=== PATIENT | female | born 1985 | race Caucasian/White ===

== ENCOUNTER 2017-03-12 13:48 | Emergency (ER) | payer OTHER ==
[2017-03-12 14:07] VITALS: RESP 18
[2017-03-12 14:09] VITALS: BMI 38.4
--- NOTE | 2017-03-12 14:56 | RAD ---
HISTORY: chest pain COMPARISON: No prior. TECHNIQUE: Chest PA and lateral FINDINGS: LUNGS: No active pulmonary disease. PLEURA: No significant pleural effusion identified. No pneumothorax apparent. CARDIOVASCULAR: Normal. OSSEOUS STRUCTURES: No significant abnormalities. VISUALIZED UPPER ABDOMEN: Normal. OTHER FINDINGS: None. IMPRESSION: No active disease.
[2017-03-12 15:09] LABS: BASO # 0.1 K/uL (0.0-0.2); EOS # 0.2 K/uL (0.0-0.7); EOS % 2.8 % (0.0-4.0); LYMPH # 2.3 K/uL (1.0-4.3); LYMPH % 25.9 % (20.0-40.0); MEAN CORPUSCULAR HGB CONC 32.2 g/dL (33.0-37.0); MEAN PLATELET VOLUME 8.4 fL (7.2-11.7); MONO # 0.6 K/uL (0.0-0.8); MONO % 6.3 % (0.0-10.0); RED CELL DISTRIBUTION WIDTH 15.4 % (11.5-14.5)
--- NOTE | 2017-03-12 15:09 | C.PDOC ---
History Of Present Illness 31 year old female presents to the ED with complaints of sharp left sided chest pain for two days that radiates to the back. Patient also notes right sided neck pain that is worsened with movement. Patient reports recent travel on airplane, with extended period of time sitting. Patient denies exacerbation of pain with deep breaths, weakness, numbness, shortness of breath, nausea, vomiting. Denies HTN, Diabetes, tobacco or drug use. Time Seen by Provider: 03/12/17 14:16 Chief Complaint (Nursing): Chest Pain History Per: Patient History/Exam Limitations: no limitations Onset/Duration Of Symptoms: Days (2) Current Symptoms Are (Timing): Still Present Quality: "Pain" Associated Symptoms: denies: Nausea, Dyspnea, Diaphoresis, Syncope Modifying Factors: None Exacerbating Factors: None Alleviating Factors: None Recent travel outside of the [place]: No Past Medical History Reviewed: Historical Data, Nursing Documentation, Vital Signs Vital Signs: Last Vital Signs Temp 97.8 F 03/12/17 13:58 Pulse 73 03/12/17 17:25 Resp 18 03/12/17 17:25 BP 99/56 L 03/12/17 17:25 Pulse Ox 100 03/12/17 18:19 - [facility] Procedures DELIVERY OF PRODUCTS OF CONCEPTION, EXTERNAL APPROACH (07/29/15) REPAIR PERINEUM MUSCLE, OPEN APPROACH (07/29/15) Family History: States: Unknown Family Hx - Social History Hx Alcohol Use: No Hx Substance Use: No - Immunization History Hx Influenza Vaccination: No Review Of Systems Constitutional: Negative for: Fever, Chills Cardiovascular: Positive for: Chest Pain. Negative for: Palpitations Respiratory: Negative for: Cough, Shortness of Breath Gastrointestinal: Negative for: Nausea, Vomiting, Abdominal Pain, Diarrhea Musculoskeletal: Positive for: Neck Pain, Back Pain Neurological: Negative for: Weakness, Numbness Physical Exam - Physical Exam Appears: Well, Non-toxic, No Acute Distress Skin: Warm, Dry, No Rash Head: Atraumatic, Normacephalic, No Tenderness Eye(s): bilateral: Normal Inspection, PERRL, EOMI Oral Mucosa: Moist Neck: Paracervical Tenderness, Supple Chest: Symmetrical, No Deformity Cardiovascular: Rhythm Regular, No Murmur Respiratory: No Rales, No Rhonchi, No Wheezing, Other (clear to auscultation bilaterally ) Gastrointestinal/Abdominal: Soft, No Tenderness, No Distention, No Guarding, No Rebound Back: Muscle Spasm (upper neck and back), Paraspinal Tenderness (upper back paraspinal tenderness ) Extremity: Normal ROM, No Tenderness Pulses: Left Radial: Normal, Right Radial: Normal Neurological/Psych: Oriented x3 Gait: Steady ED Course And Treatment - Laboratory Results Result Diagrams: 03/12/17 15:00 03/12/17 15:00 ECG: Interpreted By Me, Viewed By Me ECG Rhythm: Sinus Rhythm Rate From EC O2 Sat by Pulse Oximetry: 100 (RA) Pulse Ox Interpretation: Normal - Radiology CXR: Viewed By Me, Read By Radiologist CXR Interpretation: Yes: No Acute Disease Progress Note: EKG, CXR, and blood work were ordered. Patient was given Toradol. Medical Decision Making Medical Decision Making: EKG shows NSR at 67bpm with sinus arrhythmia. D-Dimer was elevated. CT angio was ordered to rule out PE. FINDINGS: PULMONARY ARTERIES: The visualized pulmonary trunk, right and left main, segmental and proximal subsegmental branches of the pulmonary arteries are well opacified with no definitive filling defects seen to suggest acute central pulmonary embolus. Pulmonary trunk measures approximately 2.6 the the cm. AORTA: The ascending thoracic aorta measures approximately 2.5 cm and descending thoracic aorta measures approximately 1.9 cm. LUNGS: No focal consolidation however vague ground-glass densities in the posterior lung keller on most pronounced in the lower lobes probably represent some areas of passive/dependent type atelectasis and possibly some air trapping. No evidence of parenchymal mass or nodule. PLEURAL SPACES: Unremarkable. No effusion or pneumothorax. HEART: Heart size is within range of normal. No significant pericardial effusion. LYMPH NODES: . No significant mediastinal hilar adenopathy. Central airways are midline and patent. No endobronchial central endobronchial lesions are identified. BONES, CHEST WALL: No acute compression fractures. Minor multilevel degenerative spondylosis of the thoracic spine. OTHER FINDINGS: Visualized upper abdominal structures are unremarkable. IMPRESSION: No evidence of acute central pulmonary embolus. Mild passive/ dependent type atelectasis and suspected air trapping changes as described. 6:25PM Patient has no cardiac risk factors. She has a normal ekg. Her CTA was negative. She feels better after toradol and reports that she will follow-up with PMD Disposition - Disposition Disposition: HOME/ ROUTINE Disposition Time: 18:19 Condition: GOOD Additional Instructions: Follow-up with PMD within 2 days for further evaluation. Return to ED if condition worsens. Instructions: Costochondritis (ED) Forms: [facility] (Spanish) - Clinical Impression Clinical Impression: Chest pain - Scribe Statement The provider has reviewed the documentation as recorded by the Scribe Joanne Beasley All medical record entries made by the Zoranibe were at my direction and personally dictated by me. I have reviewed the chart and agree that the record accurately reflects my personal performance of the history, physical exam, medical decision making, and the department course for this patient. I have also personally directed, reviewed, and agree with the discharge instructions and disposition.
[2017-03-12 15:13] LABS: MEAN CELL VOLUME 80.5 fL (81.0-99.0)
[2017-03-12 15:26] LABS: ALB/GLOB RATIO 1.1 (1.0-2.1); ALKALINE PHOSPHATASE 80 U/L (38-126); ALT/SGPT 33 U/L (9-52); AST/SGOT 21 U/L (14-36); BILIRUBIN,TOTAL 0.8 mg/dL (0.2-1.3); BLOOD UREA NITROGEN 10 mg/dL (7-17); CALCIUM 8.7 mg/dl (8.6-10.4); CARBON DIOXIDE 27 mmol/L (22-30); CHLORIDE 99 mmol/L (98-107); GFR AFRICAN-AMERICAN > 60; GLUCOSE,RANDOM 82 mg/dL (65-105); POTASSIUM 4.5 mmol/L (3.6-5.2); SODIUM 132 mmol/L (132-148)
[2017-03-12] MEDS ORDERED: Iodixanol 320 mg/ml 150 ml Bottle IV ONE (17:02)
--- NOTE | 2017-03-12 18:18 | CT ---
PROCEDURE: CT Chest with contrast (Pulmonary Angiogram) HISTORY: chest pain, elevated dimer COMPARISON: Correlation made with chest x-ray obtained earlier same day TECHNIQUE: Axial computed tomography images were obtained of the chest in the pulmonary arterial phase of enhancement. Coronal and sagittal reformatted images were created and reviewed. Intravenous contrast dose: 75 cc Visipaque 320 contrast material. Radiation dose: Total exam DLP = 536.14 mGy-cm. This CT exam was performed using one or more of the following dose reduction techniques: Automated exposure control, adjustment of the mA and/or kV according to patient size, and/or use of iterative reconstruction technique. FINDINGS: PULMONARY ARTERIES: The visualized pulmonary trunk, right and left main, segmental and proximal subsegmental branches of the pulmonary arteries are well opacified with no definitive filling defects seen to suggest acute central pulmonary embolus. Pulmonary trunk measures approximately 2.6 the the cm. AORTA: The ascending thoracic aorta measures approximately 2.5 cm and descending thoracic aorta measures approximately 1.9 cm. LUNGS: No focal consolidation however vague ground-glass densities in the posterior lung keller on most pronounced in the lower lobes probably represent some areas of passive/dependent type atelectasis and possibly some air trapping. No evidence of parenchymal mass or nodule. PLEURAL SPACES: Unremarkable. No effusion or pneumothorax. HEART: Heart size is within range of normal. No significant pericardial effusion. LYMPH NODES: . No significant mediastinal hilar adenopathy. Central airways are midline and patent. No endobronchial central endobronchial lesions are identified. BONES, CHEST WALL: No acute compression fractures. Minor multilevel degenerative spondylosis of the thoracic spine. OTHER FINDINGS: Visualized upper abdominal structures are unremarkable. IMPRESSION: No evidence of acute central pulmonary embolus. Mild passive/ dependent type atelectasis and suspected air trapping changes as described.
[2017-03-12 19:31] VITALS: BP 101/69; PULSE 79; TEMP 98.2; O2SAT 96
--- NOTE | 2017-03-13 19:06 | CARD ---
APPROVED REPORT EKG Measurement Heart [id number] <Conclusion> Normal sinus rhythm with sinus arrhythmia Normal ECG
== END 2017-03-12 19:28 | disposition home or self-care (01) ==
LOC: C.ER 13:48
DX: R07.9 Chest pain, unspecified (principal)
CPT/HCPCS: 71020; 71275; 80053; 85025; 85378; 93005; 96374; 99285; J1885; Q9967

== ENCOUNTER 2018-03-03 17:16 | Emergency (ER) | payer OTHER ==
[2018-03-03 17:16] VITALS: BMI 38.4
[2018-03-03 17:50] VITALS: BP 100/70; RESP 20; O2SAT 99
[2018-03-03] MEDS ORDERED: Amoxicillin-Clav 875-125 mg Tab PO STA (18:04)
[2018-03-03] MEDS ORDERED: Amoxicillin-Clav 875-125 mg Tab PO ONE (18:17)
--- NOTE | 2018-03-03 18:19 | C.PDOC ---
History Of Present Illness 32 y/o female presents to the ED complaining of a fever, sore throat, cough, congestion, and ear pain, on and off for the past 5-6 days. She reports taking dayquil with minimal relief. Last night she developed chills and a headache, and this morning patient had increased difficulty swallowing. Otherwise she denies any vomiting, diarrhea, rashes, SOB, or other associated symptoms. Denies recent travel. Time Seen by Provider: 03/03/18 18:03 Chief Complaint (Nursing): Flu-like Symptoms History Per: Patient History/Exam Limitations: no limitations Onset/Duration Of Symptoms: Days (x6) Current Symptoms Are (Timing): Still Present Location Of Pain: Ear(s), Throat, Headache Sick Contacts (Context): Family Member(s) (daughter) Associated Symptoms: Fever, Cough, Nasal Congestion Past Medical History Reviewed: Historical Data, Nursing Documentation, Vital Signs Vital Signs: Last Vital Signs Temp 99.1 F 03/03/18 17:47 Pulse 105 H 03/03/18 17:47 Resp 20 03/03/18 17:47 BP 100/70 03/03/18 17:47 Pulse Ox 99 03/03/18 17:47 - Medical History PMH: No Chronic Diseases Surgical History: No Surg Hx - [facility] Procedures DELIVERY OF PRODUCTS OF CONCEPTION, EXTERNAL APPROACH (07/29/15) REPAIR PERINEUM MUSCLE, OPEN APPROACH (07/29/15) Family History: States: Unknown Family Hx - Social History Hx Alcohol Use: No Hx Substance Use: No - Immunization History Hx Influenza Vaccination: No Review Of Systems Constitutional: Positive for: Fever, Chills Eyes: Negative for: Vision Change ENT: Positive for: Ear Pain, Nose Discharge, Nose Congestion, Throat Pain Cardiovascular: Negative for: Chest Pain Respiratory: Positive for: Cough. Negative for: Shortness of Breath, Sputum, Wheezing Gastrointestinal: Negative for: Nausea, Vomiting, Diarrhea Skin: Negative for: Rash Physical Exam - Physical Exam Appears: Well, Non-toxic, No Acute Distress Skin: Warm, Dry, No Rash Head: Atraumatic, Normacephalic Eye(s): bilateral: Normal Inspection, PERRL, EOMI Ear(s): Left: TM Erythema, Right: Normal Nose: Discharge (+ nasal congestion) Oral Mucosa: Moist Throat: Erythema (and tonsillar enlargement), No Exudate Neck: Normal ROM, Supple Lymphatic: Adenopathy (+ bilateral cervical lymphadenopathy, left > right) Chest: Symmetrical, No Tenderness, No Ecchymosis, No Subcutaneous Emphysema Cardiovascular: Rhythm Regular, No Friction Rub, No Murmur Respiratory: Normal Breath Sounds, No Rales, No Rhonchi, No Wheezing Gastrointestinal/Abdominal: Soft, No Tenderness, No Organomegaly, No Guarding, No Rebound Back: No CVA Tenderness Extremity: Normal ROM, No Pedal Edema, No Swelling Pulses: Left Dorsalis Pedis: Normal, Right Dorsalis Pedis: Normal Neurological/Psych: Oriented x3, Normal Speech Gait: Steady ED Course And Treatment O2 Sat by Pulse Oximetry: 99 (RA) Pulse Ox Interpretation: Normal Medical Decision Making Medical Decision Making: Plan: * Augmentin 1 tab PO * Motrin 600 mg PO Disposition - Disposition Referrals: [facility] [Outside] Disposition: HOME/ ROUTINE Disposition Time: 19:00 Condition: STABLE Additional Instructions: Follow up with the medical doctor within 1-2 days without fail. Return if worsened. Prescriptions: Amoxicillin/Clavulanate [Augmentin 875 MG-125 MG] 1 tab PO BID #13 tab Ibuprofen [Motrin] 600 mg PO TID #21 tab Instructions: Ear Infections (Otitis Media) (DC), Sore Throat, Adult (DC) Forms: [facility] (Setswana) - Clinical Impression Clinical Impression: Otitis media, Pharyngitis - PA / SUPERVISORY CLERK / Resident Statement MD/DO has reviewed & agrees with the documentation as recorded. - Scribe Statement The provider has reviewed the documentation as recorded by the Scribe (Mildred Mcdonald) All medical record entries made by the Scribe were at my direction and personally dictated by me. I have reviewed the chart and agree that the record accurately reflects my personal performance of the history, physical exam, medical decision making, and the department course for this patient. I have also personally directed, reviewed, and agree with the discharge instructions and disposition.
[2018-03-03 19:06] VITALS: PULSE 99; TEMP 100
== END 2018-03-03 19:06 | disposition home or self-care (01) ==
LOC: C.ER 17:16
DX: H66.92 Otitis media, unspecified, left ear (principal); J02.9 Acute pharyngitis, unspecified